=== PATIENT | female | born 1990 | race Caucasian/White ===

== ENCOUNTER → 2023-12-31 | Outpatient (CLI) | payer OTHER ==
[~2023-12-31] MED LIST: AMOXICILLIN500 MG PO; BACTRIM DS 8001 TA1 PO; KEFLEX500 MG PO; KENALOG0.025% TP; MOTRIN400 MG PO; MOTRIN600 MG PO; NAPROSYN500 MG PO; NKHM; PEPCID20 MG PO; TRAMADOL HCL50 MG PO; TRIMOX500 MG PO; ULTRAM50 MG PO
[2023-12-31 11:53] LABS: BASO % 0.5 % (0.0-1.0); EOS # 0.1 10*3/uL (0.0-0.4); HEMATOCRIT 39.3 % (37.0-47.0); LYMPH # 2.1 10*3/uL (1.3-4.4); LYMPH % 27.2 % (27.0-41.0); MEAN CELL VOLUME 86.9 fl (81.0-99.0); MEAN CORPUSCULAR HGB 28.8 pg (27.0-31.0); MEAN CORPUSCULAR HGB CONC 33.1 g/dl (33.0-37.0); MONO # 0.4 10*3/uL (0.1-1.0); NEUT # 5.2 10*3/uL (2.3-7.9); PLATELET COUNT AUTOMATED 216 10*3/uL (130-400); RED BLOOD COUNT 4.52 10*6/uL (4.10-5.10); RED CELL DISTRI WIDTH 14.3 % (0-14.5); RETICULOCYTE % 2.29 % (0.50-2.50); WHITE BLOOD COUNT 7.8 10*3/uL (4.8-10.8)
[2023-12-31 12:34] LABS: ALKALINE PHOSPHATASE 97 U/L (46-116); BUN 6 mg/dl (9-23); CHLORIDE 106 mmol/L (98-107); CHOLESTEROL 143 mg/dL (<200); GAMMA GLUTAMYL TRANSPEPTIDASE 30 U/L (0-73); LDL CHOLESTEROL 80 mg/dL (9-159); POTASSIUM 3.6 mmol/L (3.4-5.1); SGPT/ALT 26 U/L (5-49); T3 UPTAKE 23.7 % (22.4-36.7); THYROXINE (T4) TOTAL 9.6 ug/dl (4.5-10.9); TOTAL PROTEIN 7.1 gm/dL (6.0-8.0); TRIGLYCERIDES 167 mg/dl (<150); URIC ACID 8.7 mg/dL (3.1-7.8)
[2023-12-31 12:36] LABS: VITAMIN D, 25-HYDROXY 64.2 ng/mL (30-100)
[2024-01-03 13:06] LABS: ANTI-DSDNA ANTIBODIES 2 IU/mL (0-9)
== END | disposition home or self-care (01) ==
LOC: US 12-27 11:00 → LAB 01:43 → US 01:43
PROVIDERS: ATTEND Family Medicine
DX: E03.9 Hypothyroidism, unspecified (principal); E78.5 Hyperlipidemia, unspecified; E55.9 Vitamin D deficiency, unspecified; R79.89 Other specified abnormal findings of blood chemistry; R74.8 Abnormal levels of other serum enzymes; R53.83 Other fatigue

== ENCOUNTER → 2024-04-06 | Outpatient (CLI) | payer OTHER ==
[2024-04-06 09:35] LABS: BASO % 0.4 % (0.0-1.0); EOS % 0.6 % (1.0-4.0); LYMPH # 0.8 10*3/uL (1.3-4.4); LYMPH % 16.3 % (27.0-41.0); MEAN CORPUSCULAR HGB 29.4 pg (27.0-31.0); MEAN CORPUSCULAR HGB CONC 34.2 g/dl (33.0-37.0); MEAN PLATELET VOLUME 9.9 fl (9.6-12.3); MONO # 0.4 10*3/uL (0.1-1.0); MONO % 7.2 % (3.0-9.0); NEUT # 3.6 10*3/uL (2.3-7.9); NEUT % 74.9 % (47.0-73.0); PLATELET COUNT AUTOMATED 214 10*3/uL (130-400); RED BLOOD COUNT 4.42 10*6/uL (4.10-5.10); RED CELL DISTRI WIDTH 13.7 % (0-14.5); RETICULOCYTE % 2.91 % (0.50-2.50); WHITE BLOOD COUNT 4.8 10*3/uL (4.8-10.8)
[2024-04-06 09:55] LABS: BILIRUBIN 1+ (Negative); BLOOD Negative (Negative); CLARITY Cloudy (Clear); COLOR Dark Yellow (Yellow); GLUCOSE Negative (Negative); KETONE Negative (Negative); LEUKO ESTERASE 1+ (Negative); NITRITE Negative (Negative); SPECIFIC GRAVITY 1.015 (1.001-1.030)
[2024-04-06 11:01] LABS: ALKALINE PHOSPHATASE 119 U/L (46-116); BUN 8 mg/dl (9-23); CHLORIDE 105 mmol/L (98-107); CHOLESTEROL 182 mg/dL (<200); GAMMA GLUTAMYL TRANSPEPTIDASE 478 U/L (0-73); LDL CHOLESTEROL 99 mg/dL (9-159); POTASSIUM 4.2 mmol/L (3.4-5.1); SGPT/ALT 434 U/L (5-49); T3 UPTAKE 30.4 % (22.4-36.7); THYROXINE (T4) TOTAL 8.9 ug/dl (4.5-10.9); TOTAL PROTEIN 7.2 gm/dL (6.0-8.0); TRIGLYCERIDES 180 mg/dl (<150)
[2024-04-06 11:08] LABS: BETA-HCG, QUANT < 3.0 mIU/mL (3-10)
[2024-04-06 11:39] LABS: VITAMIN D, 25-HYDROXY 45.4 ng/mL (30-100)
[2024-04-06 11:47] LABS: BACTERIA 1+
== END ==
LOC: LAB 09:02
PROVIDERS: ATTEND Family Medicine
DX: R53.83 Other fatigue (principal); E11.9 Type 2 diabetes mellitus without complications; R79.89 Other specified abnormal findings of blood chemistry; E78.5 Hyperlipidemia, unspecified; E55.9 Vitamin D deficiency, unspecified

== ENCOUNTER → 2024-04-12 | Outpatient (CLI) | payer OTHER ==
[2024-04-12 10:23] LABS: HEMATOCRIT 38.4 % (37.0-47.0); MEAN CELL VOLUME 89.1 fl (81.0-99.0); MEAN CORPUSCULAR HGB 29.2 pg (27.0-31.0); MEAN CORPUSCULAR HGB CONC 32.8 g/dl (33.0-37.0); MEAN PLATELET VOLUME 9.8 fl (9.6-12.3); PLATELET COUNT AUTOMATED 217 10*3/uL (130-400); RED BLOOD COUNT 4.31 10*6/uL (4.10-5.10); RED CELL DISTRI WIDTH 13.9 % (0-14.5); WHITE BLOOD COUNT 8.2 10*3/uL (4.8-10.8)
[2024-04-12 10:52] LABS: TOTAL PROTEIN 7.4 gm/dL (6.0-8.0)
[2024-04-12 11:24] LABS: ATYPICAL LYMPHS 1 % (0-0); BASOPHILS 1 % (0-1); TOTAL CELLS COUNTED 100 #CELLS
[2024-04-12 11:28] LABS: PLATELET SUFFICIENCY NORMAL (NORMAL); POLYCHROMASIA SLIGHT
[2024-04-12 11:30] LABS: MICROCYTOSIS SLIGHT
[2024-04-13 06:10] LABS: HBSAG Negative (Negative); HEP B CORE AB, IGM Negative (Negative); HEPATITIS C ANTIBODY Non Reactive (Non Reactive); TOTAL PROTEIN, SERUM 6.9 g/dL (6.0-8.5)
[2024-04-13 13:06] LABS: ALBUMIN 3.5 g/dL (2.9-4.4); ALPHA-1-GLOBULIN 0.3 g/dL (0.0-0.4); ALPHA-2-GLOBULIN 0.7 g/dL (0.4-1.0); BETA GLOBULIN 1.2 g/dL (0.7-1.3); GAMMA GLOBULIN 1.2 g/dL (0.4-1.8); GLOBULIN, TOTAL 3.4 g/dL (2.2-3.9)
== END | disposition home or self-care (01) ==
LOC: LAB 09:59
PROVIDERS: ATTEND Family Medicine
DX: E78.5 Hyperlipidemia, unspecified (principal); R79.89 Other specified abnormal findings of blood chemistry; R53.83 Other fatigue

== ENCOUNTER → 2024-04-24 | Outpatient (CLI) | payer OTHER | END | disposition home or self-care (01) | LOC: US 04-18 09:30 | PROVIDERS: ATTEND Family Medicine | DX: K80.20 Calculus of gallbladder without cholecystitis without obstruction (principal); R16.2 Hepatomegaly with splenomegaly, not elsewhere classified; K76.0 Fatty (change of) liver, not elsewhere classified; R10.84 Generalized abdominal pain; R10.2 Pelvic and perineal pain; R10.11 Right upper quadrant pain; E11.9 Type 2 diabetes mellitus without complications; I10 Essential (primary) hypertension ==

== ENCOUNTER → 2024-06-14 | Outpatient (CLI) | payer OTHER ==
[2024-06-14 13:05] LABS: TOTAL PROTEIN 7.1 gm/dL (6.0-8.0)
[2024-06-15 12:08] LABS: ALPHA-1-ANTITRYPSIN, SERUM 164 mg/dL (100-188)
[2024-06-15 17:07] LABS: ANTI-SMOOTH MUSCLE ANTIBODY 4 Units (0-19)
[2024-06-17 00:06] LABS: ALPHA 2-MACAROGLOBULINS 164 mg/dL (110-276); ALT (SGPT) P5P 22 IU/L (0-40); APOLIPOPROEIN A-1 133 mg/dL (116-209); BILIRUBIN, TOTAL 0.4 mg/dL (0.0-1.2); CHOLESTEROL, TOTAL 168 mg/dL (100-199); GGT 24 IU/L (0-60); GLUCOSE, SERUM 148 mg/dL (70-99); HAPTOGLOBIN 164 mg/dL (33-278); TRIGLYCERIDES 182 mg/dL (0-149)
== END | disposition home or self-care (01) ==
LOC: LAB 12:21
PROVIDERS: ATTEND Nurse Practitioner
DX: M25.521 Pain in right elbow (principal); E11.9 Type 2 diabetes mellitus without complications; R74.01 Elevation of levels of liver transaminase levels

== ENCOUNTER → 2024-08-23 | Outpatient (CLI) | payer OTHER ==
[2024-08-23 10:25] LABS: ALKALINE PHOSPHATASE 89 U/L (46-116); BUN 10 mg/dl (9-23); CHLORIDE 103 mmol/L (98-107); GAMMA GLUTAMYL TRANSPEPTIDASE 32 U/L (0-73); POTASSIUM 4.3 mmol/L (3.4-5.1); SGPT/ALT 26 U/L (5-49); TOTAL PROTEIN 7.3 gm/dL (6.0-8.0)
== END | disposition home or self-care (01) ==
LOC: LAB 09:43
PROVIDERS: ATTEND Physician Assistant
DX: R74.8 Abnormal levels of other serum enzymes (principal); R74.01 Elevation of levels of liver transaminase levels

== ENCOUNTER 2024-09-03 20:41 | Emergency (ER) | payer OTHER ==
[~2024-09-03] VITALS: Ht 157.4 cm; Wt 142.9 kg
[2024-09-03] MEDS ORDERED: LOSARTAN POTASS50 M1 PO (21:18)
[2024-09-03] MEDS ORDERED: IRON325 M1 PO (21:18)
[2024-09-03] MEDS ORDERED: LEVOTHYROXINE112 MCG PO (21:19)
[2024-09-03] MEDS ORDERED: OMEPRAZOLE40 MG PO (21:19)
[2024-09-03] MEDS ORDERED: TRULICITY3 MG/0.5 M SQ (21:19)
[2024-09-03] MEDS ORDERED: LEADER NATUR1000 MCG PO (21:19)
[2024-09-03] MEDS ORDERED: VITAMIN D350 MC2 PO (21:20)
[2024-09-03] MEDS ORDERED: Ondansetron Hydrochloride 4 MG/2 ML VIAL IV ONE (21:30)
[2024-09-03] MEDS ORDERED: SODIUM CHLORIDE 0.9% 1,000 ML IV ONE (21:30)
[2024-09-03 21:50] LABS: BASO % 0.3 % (0.0-1.0); EOS # 0.1 10*3/uL (0.0-0.4); EOS % 0.4 % (1.0-4.0); HEMATOCRIT 38.3 % (37.0-47.0); MEAN CELL VOLUME 87.2 fl (81.0-99.0); MEAN CORPUSCULAR HGB 29.2 pg (27.0-31.0); MEAN CORPUSCULAR HGB CONC 33.4 g/dl (33.0-37.0); MEAN PLATELET VOLUME 9.5 fl (9.6-12.3); MONO # 0.3 10*3/uL (0.1-1.0); MONO % 2.8 % (3.0-9.0); NEUT # 10.3 10*3/uL (2.3-7.9); NEUT % 86.6 % (47.0-73.0); PLATELET COUNT AUTOMATED 240 10*3/uL (130-400); RED BLOOD COUNT 4.39 10*6/uL (4.10-5.10); RED CELL DISTRI WIDTH 13.8 % (0-14.5); WHITE BLOOD COUNT 11.9 10*3/uL (4.8-10.8)
[2024-09-03 22:15] LABS: ALKALINE PHOSPHATASE 81 U/L (46-116); BUN 10 mg/dl (9-23); CHLORIDE 104 mmol/L (98-107); LIPASE 35 U/L (12-53); POTASSIUM 4.1 mmol/L (3.4-5.1); SGPT/ALT 27 U/L (5-49); TOTAL PROTEIN 7.9 gm/dL (6.0-8.0)
[2024-09-03 22:53] LABS: BILIRUBIN 1+ (Negative); BLOOD Negative (Negative); CLARITY Turbid (Clear); COLOR Dark Yellow (Yellow); GLUCOSE Negative (Negative); KETONE Trace (Negative); LEUKO ESTERASE Trace (Negative); NITRITE Negative (Negative); SPECIFIC GRAVITY >= 1.030 (1.001-1.030)
[2024-09-03 23:11] LABS: BACTERIA 2+
[2024-09-03] MEDS ORDERED: CIPRO500 MG PO (23:32)
== END 2024-09-04 00:10 | disposition home or self-care (01) ==
LOC: ED 20:41
PROVIDERS: Nurse Practitioner Family
DX: N39.0 Urinary tract infection, site not specified (principal); R11.2 Nausea with vomiting, unspecified; R19.7 Diarrhea, unspecified; E11.9 Type 2 diabetes mellitus without complications

== ENCOUNTER → 2025-01-18 | Outpatient (CLI) | payer OTHER ==
[~2025-01-18] MED LIST changes: +CIPRO500 MG PO; +IRON325 M1 PO; +LEADER NATUR1000 MCG PO; +LEVOTHYROXINE112 MCG PO; +LOSARTAN POTASS50 M1 PO; +OMEPRAZOLE40 MG PO; +TRULICITY3 MG/0.5 M SQ; +VITAMIN D350 MC2 PO
[2025-01-18 08:51] LABS: BASO % 0.4 % (0.0-1.0); EOS # 0.1 10*3/uL (0.0-0.4); EOS % 1.6 % (1.0-4.0); HEMATOCRIT 37.5 % (37.0-47.0); MEAN CELL VOLUME 87.4 fl (81.0-99.0); MEAN CORPUSCULAR HGB 29.6 pg (27.0-31.0); MEAN CORPUSCULAR HGB CONC 33.9 g/dl (33.0-37.0); MEAN PLATELET VOLUME 10.2 fl (9.6-12.3); MONO # 0.4 10*3/uL (0.1-1.0); MONO % 4.8 % (3.0-9.0); NEUT # 5.9 10*3/uL (2.3-7.9); PLATELET COUNT AUTOMATED 213 10*3/uL (130-400); RED BLOOD COUNT 4.29 10*6/uL (4.10-5.10); RED CELL DISTRI WIDTH 13.6 % (0-14.5); RETICULOCYTE % 3.43 % (0.50-2.50)
[2025-01-18 09:28] LABS: ALKALINE PHOSPHATASE 78 U/L (46-116); BUN 9 mg/dl (9-23); CHLORIDE 102 mmol/L (98-107); CHOLESTEROL 179 mg/dL (<200); GAMMA GLUTAMYL TRANSPEPTIDASE 50 U/L (0-73); LDL CHOLESTEROL 101 mg/dL (9-159); POTASSIUM 4.2 mmol/L (3.4-5.1); SGPT/ALT 35 U/L (5-49); TOTAL PROTEIN 7.3 gm/dL (6.0-8.0); TRIGLYCERIDES 202 mg/dl (<150)
[2025-01-19 17:07] LABS: t-TRANSGLUTAMINASE (tTG) IGA <2 U/mL (0-3); t-TRANSGLUTAMINASE (tTG) IgG 2 U/mL (0-5)
== END | disposition home or self-care (01) ==
LOC: LAB 08:06
PROVIDERS: Family Medicine; ATTEND Nurse Practitioner
DX: R79.89 Other specified abnormal findings of blood chemistry (principal); R53.83 Other fatigue; E78.5 Hyperlipidemia, unspecified; E11.9 Type 2 diabetes mellitus without complications; R10.84 Generalized abdominal pain; K83.8 Other specified diseases of biliary tract; K76.0 Fatty (change of) liver, not elsewhere classified; K80.00 Calculus of gallbladder with acute cholecystitis without obstruction; R74.8 Abnormal levels of other serum enzymes

== ENCOUNTER → 2025-05-21 | Outpatient (CLI) | payer OTHER | LOC: ORTHO 02:08 | PROVIDERS: ATTEND Orthopaedic Surgery | DX: M77.32 Calcaneal spur, left foot (principal); M76.72 Peroneal tendinitis, left leg ==

== ENCOUNTER → 2025-05-29 | Outpatient (CLI) | payer OTHER ==
[2025-05-29 08:50] LABS: BASO # 0.0 10*3/uL (0.0-0.1); BASO % 0.4 % (0.0-1.0); EOS # 0.2 10*3/uL (0.0-0.4); EOS % 3.3 % (1.0-4.0); MEAN CELL VOLUME 89.2 fl (81.0-99.0); MEAN CORPUSCULAR HGB 29.2 pg (27.0-31.0); MEAN PLATELET VOLUME 9.6 fl (9.6-12.3); MONO # 0.3 10*3/uL (0.1-1.0); MONO % 4.7 % (3.0-9.0); NEUT # 5.2 10*3/uL (2.3-7.9); NEUT % 71.8 % (47.0-73.0); NUCLEATED RED BLOOD CELL 0.0 % (0.0-0.0); NUCLEATED RED BLOOD CELL 0.0 10*3/uL (0.0-0.0); PLATELET COUNT AUTOMATED 204 10*3/uL (130-400); RED CELL DISTRI WIDTH 13.9 % (0-14.5); RETICULOCYTE % 2.89 % (0.50-2.50)
[2025-05-29 09:04] LABS: BILIRUBIN Negative (Negative); BLOOD 1+ (Negative); CLARITY Cloudy (Clear); COLOR Yellow (Yellow); KETONE Trace (Negative); LEUKO ESTERASE 1+ (Negative); NITRITE Negative (Negative); PH 6.5 (4.5-8.0); SPECIFIC GRAVITY 1.020 (1.001-1.030); UROBILINOGEN 1.0 E.U./dl (0.0-1.0)
[2025-05-29 09:18] LABS: BUN 6 mg/dl (9-23); GAMMA GLUTAMYL TRANSFERASE 36 U/L (0-38); LDL CHOLESTEROL 99 mg/dL (9-159); SGPT/ALT 30 U/L (5-49); T3 UPTAKE 29.6 % (22.4-36.7); THYROXINE (T4) TOTAL 8.9 ug/dl (4.5-10.9); VITAMIN D, 25-HYDROXY 45.7 ng/mL (30-100)
[2025-05-29 09:33] LABS: BACTERIA 2+; EPITHELIAL CELLS 21-30
== END | disposition home or self-care (01) ==
LOC: LAB 08:12
PROVIDERS: Family Medicine; ATTEND Nurse Practitioner Women's Health
DX: R79.89 Other specified abnormal findings of blood chemistry (principal); E78.5 Hyperlipidemia, unspecified; R53.83 Other fatigue; E55.9 Vitamin D deficiency, unspecified

== ENCOUNTER → 2025-06-05 | Outpatient (CLI) | payer OTHER | END | disposition home or self-care (01) | LOC: MRI 12:17 | PROVIDERS: ATTEND Orthopaedic Surgery | DX: S99.812A Other specified injuries of left ankle, initial encounter (principal); R60.0 Localized edema; M77.32 Calcaneal spur, left foot; M76.72 Peroneal tendinitis, left leg; X58.XXXA Exposure to other specified factors, initial encounter; Y93.89 Activity, other specified; Y92.89 Other specified places as the place of occurrence of the external cause; Y99.8 Other external cause status ==